=== PATIENT | male | born 1965 | race Caucasian/White ===

== ENCOUNTER 2017-06-17 19:53 | Emergency (ER) | payer BC, OTHER ==
[2017-06-17 19:58] VITALS: BP 173/92; PULSE 67; RESP 20; TEMP 98.4; O2SAT 98
[2017-06-17] MEDS ORDERED: TETANUS/DIPHTHERIA TOXOID ADULT 0.5 ML VIAL IM ONE (20:15)
[2017-06-17] MEDS ORDERED: CEPH-460 PO (20:20)
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
[2017-06-17 20:46] VITALS: BP 156/94
== END 2017-06-17 20:48 | disposition home or self-care (01) ==
LOC: PHED 19:53
DX: S91.312A Laceration without foreign body, left foot, initial encounter (principal); W26.9XXA Contact with unspecified sharp object(s), initial encounter
CPT/HCPCS: 90471; 90714